=== PATIENT | female | born 1945 | race Caucasian/White ===

== ENCOUNTER 2018-03-22 10:08 | Emergency (ER) | payer OTHER ==
[~2018-03-22] VITALS: Ht 165.1 cm; Wt 85.3 kg
[~2018-03-22 10:08] MED LIST: AMOXI PO; LEVOFLOXACIN500 M1 PO; PROMETHAZINE PO; VENTOLIN H0.09 MG/A1 INH; [UNRECOGNIZED DRUG - OTHER] PO
[2018-03-22 10:12] VITALS: Ht 165.1 cm; Wt 85.3 kg
[2018-03-22 10:59] LABS: BASOPHIL % 0.5 % (0-2); PLATELET COUNT 282 x10^3mcL (130-400); RED CELL DISTRIBUTION WIDTH 14.5 % (11.5-14.5)
[2018-03-22 11:01] LABS: CALCIUM 9.4 mg/dL (8.5-10.1); CARBON DIOXIDE 29.2 mmol/L (21-32); CHLORIDE SERUM 103 mmol/L (98-107); CREATININE SERUM 0.8 mg/dL (0.6-1.0); GLUCOSE SERUM 108 mg/dL (74-106); POTASSIUM SERUM 3.8 mmol/L (3.5-5.1); SODIUM SERUM 141 mmol/L (136-145)
[2018-03-22 11:06] LABS: ALBUMIN 3.9 g/dL (3.4-5.0); ALKALINE PHOSPHATASE 70 U/L (46-116); ALT/SGPT 27 U/L (14-59); AST/SGOT 20 U/L (15-37); BILIRUBIN TOTAL 0.63 mg/dL (0.20-1.00)
[2018-03-22 11:07] LABS: TOTAL PROTEIN, SERUM 8.6 g/dL (6.4-8.2)
[2018-03-22 12:17] VITALS: BP 104/70
== END 2018-03-22 12:17 | disposition home or self-care (01) ==
LOC: ED 10:08
PROVIDERS: Emergency Medicine
DX: R42 Dizziness and giddiness (principal); J45.909 Unspecified asthma, uncomplicated; E78.00 Pure hypercholesterolemia, unspecified
CPT/HCPCS: J7030; J8597

== ENCOUNTER 2019-05-21 11:38 | Emergency (ER) | payer OTHER ==
[~2019-05-21] VITALS: Ht 165.1 cm; Wt 87.1 kg
[2019-05-21 11:45] VITALS: Ht 165.1 cm; Wt 87.1 kg
[2019-05-21 14:21] VITALS: BP 127/72
== END 2019-05-21 14:21 | disposition home or self-care (01) ==
LOC: ED 11:38
DX: J45.901 Unspecified asthma with (acute) exacerbation (principal); E78.00 Pure hypercholesterolemia, unspecified
CPT/HCPCS: Q0092